=== PATIENT | male | born 1985 | race Caucasian/White ===

== ENCOUNTER 2022-07-21 11:45 | Outpatient (REF) | payer OTHER, SELFPAY ==
--- NOTE | ~2022-07-21 | XR_ITS ---
EXAMINATION: XR KNEE STANDING, BILATERAL XR KNEE, LEFT XR KNEE, RIGHT CLINICAL INFORMATION: Rheumatoid arthritis with rheumatoid factor. COMPARISON: None TECHNIQUE: AP upright of both knees as well as patella and lateral views of both knees. FINDINGS: RIGHT KNEE: No effusion. The bone and joints are unremarkable. No erosions LEFT KNEE: No effusion. The bone and joints are normal. No erosions. XR/XR knee standing BI IMPRESSION: Normal x-ray series of both knees .
--- NOTE | ~2022-07-21 | XR_ITS ---
EXAMINATION: XR KNEE STANDING, BILATERAL XR KNEE, LEFT XR KNEE, RIGHT CLINICAL INFORMATION: Rheumatoid arthritis with rheumatoid factor. COMPARISON: None TECHNIQUE: AP upright of both knees as well as patella and lateral views of both knees. FINDINGS: RIGHT KNEE: No effusion. The bone and joints are unremarkable. No erosions LEFT KNEE: No effusion. The bone and joints are normal. No erosions. XR/XR knee LT 2V IMPRESSION: Normal x-ray series of both knees .
--- NOTE | ~2022-07-21 | XR_ITS ---
EXAMINATION: XR HAND AND WRIST, BILATERAL XR FOOT, BILATERAL XR ANKLE, BILATERAL CLINICAL INFORMATION: Rheumatoid factor. COMPARISON: None TECHNIQUE: 3 views of each hand. 3 views of each foot. 3 views of each ankle. FINDINGS: RIGHT HAND AND WRIST: There is diffuse severe joint space narrowing of the radiocarpal compartment and midcarpal compartment with subchondral cyst in the distal radius subchondral region. Possible erosion of the distal radioulnar joint. Metacarpophalangeal Joints: There is diffuse moderate joint space narrowing of the 3rd and 5th MCP joints and possible slight narrowing of the 4th MCP joint. No definite erosions. Interphalangeal Joints: Unremarkable. No erosions. Soft Tissues: Unremarkable. LEFT HAND AND WRIST: Distal Radioulnar Joint: Severe erosive change with marked irregularity and attenuation of the distal ulna and a prominent concavity along the radial side of the distal radioulnar joint. Distal subluxation of the distal ulna. Diffuse severe joint space narrowing throughout the radiocarpal compartment. Possible partial osseous bridging across the joint. Midcarpal compartment: Diffuse severe joint space narrowing throughout. Possible small marginal erosion along the radial aspect of the triscaphe joint. Metacarpophalangeal Joints: There is diffuse joint space narrowing of the 3rd MCP joint and probably mild joint space narrowing of the 2nd MCP joint. No erosions. Interphalangeal Joints: Normal. RIGHT ANKLE: The bones, joints and soft tissues are normal. No erosions or joint space narrowing. RIGHT FOOT: Possible erosion versus subchondral cyst along the lateral aspect of the head of the 5th metatarsal. Possible marginal erosion along the lateral aspect of the head of the 2nd middle phalanx. LEFT ANKLE: The bones, joints and soft tissues are normal without erosion. LEFT FOOT: The bones, joints and soft tissues are normal without erosion. XR/XR ankle RT min 3V IMPRESSION: Findings consistent with inflammatory arthritis with bilateral involvement and involvement of the wrists and metacarpophalangeal joints. LEFT FOOT: Possible marginal erosion of the head of the 5th metatarsal and head of the 2nd middle phalanx. Ankles and right foot are unremarkable.
--- NOTE | ~2022-07-21 | XR_ITS ---
EXAMINATION: XR CHEST CLINICAL INFORMATION: Localized enlargement lymph nodes COMPARISON: None TECHNIQUE: 2 views of the chest were obtained. FINDINGS: No significant abnormality is noted involving the heart, lungs, mediastinum, bony thorax or soft tissues. Metallic left piercing noted XR/XR chest 2V IMPRESSION: No acute disease.
--- NOTE | ~2022-07-21 | XR_ITS ---
EXAMINATION: XR KNEE STANDING, BILATERAL XR KNEE, LEFT XR KNEE, RIGHT CLINICAL INFORMATION: Rheumatoid arthritis with rheumatoid factor. COMPARISON: None TECHNIQUE: AP upright of both knees as well as patella and lateral views of both knees. FINDINGS: RIGHT KNEE: No effusion. The bone and joints are unremarkable. No erosions LEFT KNEE: No effusion. The bone and joints are normal. No erosions. XR/XR knee RT 2V IMPRESSION: Normal x-ray series of both knees .
[2022-07-21 12:09] LABS: MANUAL DIFF FLAG NO
[2022-07-21 12:37] LABS: Basophils Percent Auto 0.6 % (0-2); Eosinophils Absolute Auto 0.1 X10*3/uL (0.0-0.4); Eosinophils Percent Auto 1.3 % (0-4); Hematocrit 43.9 % (42.0-52.0); Hemoglobin 15.2 g/dl (14.0-18.0); Imm Gran Abs Auto 0.01 X10*3/uL (0.00-0.03); Imm Gran Pct Auto 0.2 % (0.0-0.4); Lymphocytes Absolute Auto 2.4 X10*3/uL (1.2-4.9); Lymphocytes Percent Auto 44.4 % (20-40); Mean Corpuscular HGB Conc 34.6 g/dl (31.0-36.0); Mean Corpuscular Hemoglobin 30.8 pg (27.0-33.0); Mean Corpuscular Volume 88.9 fL (80.0-98.0); Monocytes Absolute Auto 0.5 X10*3/uL (0.1-1.2); Monocytes Percent Auto 8.9 % (2-11); Neutrophils Absolute Auto 2.4 x10*3/uL (2.0-8.3); Neutrophils Percent Auto 44.6 % (45-73); Platelet Count 260 X10*3/uL (160-400); Red Blood Count 4.94 X10*6/uL (4.60-5.80); Red Cell Distribution Width 12.7 % (11.0-16.0); White Blood Count 5.3 X10*3/uL (4.8-10.8)
[2022-07-21 13:06] LABS: Alanine Aminotransferase 58 U/L (0-40); Albumin Level 4.6 g/dL (3.5-5.0); Alkaline Phosphatase 69 U/L (39-117); Anion Gap 15 (12-20); Aspartate Amino Transferase 30 U/L (5-37); Bilirubin Total 0.6 mg/dL (0.0-1.0); Blood Urea Nitrogen 13 mg/dL (9-16); C Reactive Protein 0.08 mg/dL (< or = 0.50); Calcium 9.3 mg/dL (8.4-10.2); Carbon Dioxide 26 mmol/L (22-29); Chloride 103 mmol/L (96-108); Estimated Glomerular Filt Rate > 60; Glucose Random 79 mg/dL (60-115); Potassium 4.1 mmol/L (3.3-5.1); Sodium 140 mmol/L (135-145); Total Protein 7.5 g/dL (6.5-8.0)
[2022-07-21 13:26] LABS: Erythrocyte Sedimentation Rate 2 MM/HR (0-15)
[2022-07-21 13:28] LABS: HBS Num1 119.73 mIU/mL (0-7.99); HBc Num1 0.08 S/CO (0.00-0.79); HBsAGNum1 0.23 S/CO (0.00-0.99); HIV AB/AG Nonreactive (Nonreactive); HIV Num 1 0.06 S/CO (0.00-0.99); Hepatitis A Antibody IgM 0.19 Index (0-0.79); Hepatitis B Core Antibody Nonreactive (Nonreactive); Hepatitis B Surface Antigen Negative (Negative); Thyroid Stimulating Hormone 2.55 uIU/mL (0.32-4.0); ~HepC Num1 0.08 S/CO (0.00-0.79); ~Hepatitis A Antibody IgM Nonreactive (Nonreactive); ~Hepatitis B Surface Antibody REACTIVE (Nonreactive); ~Hepatitis C Antibody Nonreactive (Nonreactive)
[2022-07-21 13:48] LABS: Appearance Urine Clear; Color Urine Yellow; Glucose Urine UA Negative (Negative); Leukocyte Esterase Urine Negative (Negative); Nitrite Urine Negative (Negative); PH 5.5 (5.0-9.0); Urine Blood Negative (Negative); Urine Ketones Trace mg/dL (Negative); Urine Protein Negative (Neg-Trace)
[2022-07-21 13:54] LABS: Bacteria Urine None Seen (None Seen); Hyaline Casts Urine 0-2 /LPF (0-2); RBC Urine 0-2 /HPF (0-2); Squamous Epithelial Cell Urine 0-2 /HPF (0-2); WBC Urine 0-5 /HPF (0-5)
[2022-07-21 14:29] LABS: Creatinine Urine 225.59 mg/dL; Total Protein Urine Random < 7 mg/dL (<12)
[2022-07-24 16:36] LABS: Complement C3 122 mg/dL (82-185)
[2022-07-24 21:22] LABS: Angiotensin Converting Enzyme 45.8 U/L (9-67)
[2022-07-25 05:56] LABS: TS Negative Control Passed; TS Panel A 0; TS Panel B 0; TS Positive Control Passed; TSpotTB Negative (Negative)
[2022-07-25 12:06] LABS: Anti Nuclear Antibody Screen NEGATIVE (NEGATIVE)
[2022-07-25 14:22] LABS: Anti DNA DS Antibody <1 IU/mL; Antibody to SS-A Antigen <1.0 NEG AI (<1.0 NEG); Antibody to SS-B Antigen <1.0 NEG AI (<1.0 NEG); SM/Ribonucleoprotein Ab <1.0 NEG AI (<1.0 NEG); Smith Protein <1.0 NEG AI (<1.0 NEG)
[2022-07-25 14:26] LABS: IgA 365 mg/dL (47-310); IgG 1002 mg/dL (600-1640); IgM 99 mg/dL (50-300)
[2022-07-25 17:16] LABS: Cyclic Citrullinated Peptide 62 UNITS
[2022-07-25 23:21] LABS: Prot Elec - Albumin 4.7 g/dL (3.8-4.8); Prot Elec - Alpha1 0.2 g/dL (0.2-0.3); Prot Elec - Alpha2 0.7 g/dL (0.5-0.9); Prot Elec - Beta 1 0.4 g/dL (0.4-0.6); Prot Elec - Beta 2 0.4 g/dL (0.2-0.5); Prot Elec - Total Protein 7.4 g/dL (6.1-8.1)
== END 2022-07-21 11:46 | disposition home or self-care (01) ==
LOC: HO.LAB 11:45
PROVIDERS: PCP Internal Medicine; Visit Provider Student in an Organized Health Care Education/Training Program
DX: Z11.59 Encounter for screening for other viral diseases (principal); Z11.7 Encounter for testing for latent tuberculosis infection; Z11.4 Encounter for screening for human immunodeficiency virus [HIV]; M05.9 Rheumatoid arthritis with rheumatoid factor, unspecified; R59.0 Localized enlarged lymph nodes; Z79.631 Long term (current) use of antimetabolite agent
CPT/HCPCS: 36415; 71046; 73110; 73130; 73560; 73565; 73610; 73630; 80053; 81001; 82164; 82784; 84156; 84165; 84443; 85025; 85652; 86038; 86039; 86140; 86160; 86200; 86225; 86235; 86334; 86431; 86481; 86704; 86706; 86709; 86803; 87340; 87389; 99202

== ENCOUNTER 2022-09-15 11:52 | Outpatient (REF) | payer OTHER, SELFPAY ==
[2022-09-15 13:49] LABS: MANUAL DIFF FLAG NO
[2022-09-15 13:54] LABS: Basophils Percent Auto 0.5 % (0-2); Eosinophils Absolute Auto 0.1 X10*3/uL (0.0-0.4); Eosinophils Percent Auto 2.1 % (0-4); Hematocrit 45.1 % (42.0-52.0); Hemoglobin 14.7 g/dl (14.0-18.0); Imm Gran Abs Auto 0.04 X10*3/uL (0.00-0.03); Imm Gran Pct Auto 0.6 % (0.0-0.4); Lymphocytes Percent Auto 46.9 % (20-40); Mean Corpuscular HGB Conc 32.6 g/dl (31.0-36.0); Mean Corpuscular Hemoglobin 29.5 pg (27.0-33.0); Mean Corpuscular Volume 90.6 fL (80.0-98.0); Mean Platelet Volume 11.1 fL (9.4-12.4); Monocytes Absolute Auto 0.6 X10*3/uL (0.1-1.2); Monocytes Percent Auto 10.1 % (2-11); Neutrophils Absolute Auto 2.5 x10*3/uL (2.0-8.3); Neutrophils Percent Auto 39.8 % (45-73); Platelet Count 274 X10*3/uL (160-400); Red Blood Count 4.98 X10*6/uL (4.60-5.80); Red Cell Distribution Width 13.1 % (11.0-16.0); White Blood Count 6.3 X10*3/uL (4.8-10.8)
[2022-09-15 14:30] LABS: Alanine Aminotransferase 30 U/L (0-40); Albumin Level 4.2 g/dL (3.5-5.0); Alkaline Phosphatase 74 U/L (39-117); Anion Gap 9 (12-20); Aspartate Amino Transferase 19 U/L (5-37); Bilirubin Total 0.3 mg/dL (0.0-1.0); Blood Urea Nitrogen 17 mg/dL (9-16); C Reactive Protein < 0.10 mg/dL (< or = 0.50); Calcium 8.9 mg/dL (8.4-10.2); Carbon Dioxide 29 mmol/L (22-29); Chloride 107 mmol/L (96-108); Estimated Glomerular Filt Rate > 60; Glucose Random 90 mg/dL (60-115); Potassium 4.2 mmol/L (3.3-5.1); Sodium 141 mmol/L (135-145); Total Protein 6.5 g/dL (6.5-8.0)
[2022-09-15 14:36] LABS: Erythrocyte Sedimentation Rate 1 MM/HR (0-15)
== END 2022-09-15 11:53 | disposition home or self-care (01) ==
LOC: HO.10HDL 11:52
PROVIDERS: Visit Provider Student in an Organized Health Care Education/Training Program
DX: M05.9 Rheumatoid arthritis with rheumatoid factor, unspecified (principal); Z79.899 Other long term (current) drug therapy
CPT/HCPCS: 36415; 80053; 85025; 85652; 86140; 99212

== ENCOUNTER → 2022-11-02 13:43 | Outpatient (BNVA) | payer OTHER, SELFPAY | PROVIDERS: PCP Internal Medicine; Visit Provider Student in an Organized Health Care Education/Training Program | DX: M05.9 Rheumatoid arthritis with rheumatoid factor, unspecified (principal) | CPT/HCPCS: 99212 ==

== ENCOUNTER 2023-01-10 13:57 | Outpatient (REF) | payer OTHER, SELFPAY ==
[2023-01-10 14:07] LABS: MANUAL DIFF FLAG NO
[2023-01-10 16:02] LABS: Basophils Percent Auto 0.7 % (0-2); Eosinophils Absolute Auto 0.1 X10*3/uL (0.0-0.4); Eosinophils Percent Auto 1.8 % (0-4); Hematocrit 47.5 % (42.0-52.0); Hemoglobin 15.7 g/dl (14.0-18.0); Imm Gran Abs Auto 0.01 X10*3/uL (0.00-0.03); Imm Gran Pct Auto 0.2 % (0.0-0.4); Lymphocytes Absolute Auto 2.7 X10*3/uL (1.2-4.9); Lymphocytes Percent Auto 44.6 % (20-40); Mean Corpuscular HGB Conc 33.1 g/dl (31.0-36.0); Mean Corpuscular Hemoglobin 29.8 pg (27.0-33.0); Mean Corpuscular Volume 90.3 fL (80.0-98.0); Mean Platelet Volume 11.2 fL (9.4-12.4); Monocytes Absolute Auto 0.7 X10*3/uL (0.1-1.2); Monocytes Percent Auto 10.9 % (2-11); Neutrophils Absolute Auto 2.5 x10*3/uL (2.0-8.3); Neutrophils Percent Auto 41.8 % (45-73); Platelet Count 288 X10*3/uL (160-400); Red Blood Count 5.26 X10*6/uL (4.60-5.80)
[2023-01-10 16:40] LABS: Glucose Random 82 mg/dL (60-115)
[2023-01-10 16:41] LABS: Alanine Aminotransferase 25 U/L (0-40); Albumin Level 4.6 g/dL (3.5-5.0); Alkaline Phosphatase 65 U/L (39-117); Anion Gap 12 (12-20); Aspartate Amino Transferase 18 U/L (5-37); Bilirubin Total 0.6 mg/dL (0.0-1.0); Blood Urea Nitrogen 17 mg/dL (9-16); C Reactive Protein < 0.04 mg/dL (< or = 0.50); Calcium 9.4 mg/dL (8.4-10.2); Carbon Dioxide 31 mmol/L (22-29); Chloride 104 mmol/L (96-108); Estimated Glomerular Filt Rate > 60; Potassium 5.2 mmol/L (3.3-5.1); Sodium 142 mmol/L (135-145); Total Protein 6.9 g/dL (6.5-8.0)
[2023-01-10 16:55] LABS: Erythrocyte Sedimentation Rate 1 MM/HR (0-15)
== END 2023-01-10 13:58 | disposition home or self-care (01) ==
LOC: HO.LAB 13:57
PROVIDERS: PCP Internal Medicine; Visit Provider Student in an Organized Health Care Education/Training Program
DX: M05.9 Rheumatoid arthritis with rheumatoid factor, unspecified (principal)
CPT/HCPCS: 36415; 80053; 85025; 85652; 86140

== ENCOUNTER → 2023-01-11 10:06 | Outpatient (BNVA) | payer OTHER, SELFPAY | PROVIDERS: PCP Internal Medicine; Visit Provider Student in an Organized Health Care Education/Training Program | DX: M05.9 Rheumatoid arthritis with rheumatoid factor, unspecified (principal) | CPT/HCPCS: 99212 ==

== ENCOUNTER 2023-03-07 11:28 | Outpatient (REF) | payer OTHER, SELFPAY ==
[2023-03-07 13:06] LABS: MANUAL DIFF FLAG NO
[2023-03-07 13:19] LABS: Basophils Percent Auto 0.5 % (0-2); Eosinophils Absolute Auto 0.1 X10*3/uL (0.0-0.4); Eosinophils Percent Auto 1.7 % (0-4); Hematocrit 43.2 % (42.0-52.0); Hemoglobin 14.3 g/dl (14.0-18.0); Imm Gran Abs Auto 0.01 X10*3/uL (0.00-0.03); Imm Gran Pct Auto 0.2 % (0.0-0.4); Lymphocytes Absolute Auto 2.6 X10*3/uL (1.2-4.9); Lymphocytes Percent Auto 43.4 % (20-40); Mean Corpuscular HGB Conc 33.1 g/dl (31.0-36.0); Mean Corpuscular Hemoglobin 30.2 pg (27.0-33.0); Mean Corpuscular Volume 91.3 fL (80.0-98.0); Mean Platelet Volume 11.8 fL (9.4-12.4); Monocytes Absolute Auto 0.7 X10*3/uL (0.1-1.2); Monocytes Percent Auto 11.2 % (2-11); Neutrophils Absolute Auto 2.6 x10*3/uL (2.0-8.3); Platelet Count 247 X10*3/uL (160-400); Red Blood Count 4.73 X10*6/uL (4.60-5.80)
[2023-03-07 13:32] LABS: Alanine Aminotransferase 42 U/L (0-40); Albumin Level 4.3 g/dL (3.5-5.0); Alkaline Phosphatase 64 U/L (39-117); Anion Gap 10 (12-20); Aspartate Amino Transferase 25 U/L (5-37); Bilirubin Total 0.8 mg/dL (0.0-1.0); Blood Urea Nitrogen 17 mg/dL (9-16); C Reactive Protein < 0.04 mg/dL (< or = 0.50); Calcium 9.3 mg/dL (8.4-10.2); Carbon Dioxide 28 mmol/L (22-29); Chloride 107 mmol/L (96-108); Estimated Glomerular Filt Rate > 60; Glucose Random 89 mg/dL (60-115); Potassium 4.2 mmol/L (3.3-5.1); Sodium 141 mmol/L (135-145); Total Protein 6.6 g/dL (6.5-8.0)
[2023-03-07 14:03] LABS: Erythrocyte Sedimentation Rate 1 MM/HR (0-15)
== END 2023-03-07 11:29 | disposition home or self-care (01) ==
LOC: HO.10HDL 11:28
PROVIDERS: Visit Provider Student in an Organized Health Care Education/Training Program
DX: M05.9 Rheumatoid arthritis with rheumatoid factor, unspecified (principal)
CPT/HCPCS: 36415; 80053; 85025; 85652; 86140

== ENCOUNTER 2023-06-21 13:22 | Outpatient (REF) | payer SELFPAY ==
[2023-06-21 13:51] LABS: MANUAL DIFF FLAG NO
[2023-06-21 14:54] LABS: Basophils Percent Auto 0.6 % (0-2); Eosinophils Absolute Auto 0.1 X10*3/uL (0.0-0.4); Eosinophils Percent Auto 2.2 % (0-4); Hematocrit 44.3 % (42.0-52.0); Hemoglobin 14.8 g/dl (14.0-18.0); Imm Gran Abs Auto 0.02 X10*3/uL (0.00-0.03); Imm Gran Pct Auto 0.4 % (0.0-0.4); Lymphocytes Absolute Auto 1.9 X10*3/uL (1.2-4.9); Lymphocytes Percent Auto 38.9 % (20-40); Mean Corpuscular HGB Conc 33.4 g/dl (31.0-36.0); Mean Corpuscular Hemoglobin 29.9 pg (27.0-33.0); Mean Corpuscular Volume 89.5 fL (80.0-98.0); Mean Platelet Volume 11.2 fL (9.4-12.4); Monocytes Absolute Auto 0.5 X10*3/uL (0.1-1.2); Neutrophils Absolute Auto 2.3 x10*3/uL (2.0-8.3); Neutrophils Percent Auto 47.9 % (45-73); Platelet Count 260 X10*3/uL (160-400); Red Blood Count 4.95 X10*6/uL (4.60-5.80); White Blood Count 4.9 X10*3/uL (4.8-10.8)
[2023-06-21 15:23] LABS: Alanine Aminotransferase 28 U/L (0-40); Albumin Level 4.2 g/dL (3.5-5.0); Alkaline Phosphatase 82 U/L (39-117); Anion Gap 10 (12-20); Aspartate Amino Transferase 20 U/L (5-37); Bilirubin Total 0.4 mg/dL (0.0-1.0); Blood Urea Nitrogen 19 mg/dL (9-16); C Reactive Protein < 0.10 mg/dL (< or = 0.50); Carbon Dioxide 28 mmol/L (22-29); Chloride 106 mmol/L (96-108); Estimated Glomerular Filt Rate > 60; Glucose Random 149 mg/dL (60-115); Potassium 4.3 mmol/L (3.3-5.1); Sodium 140 mmol/L (135-145); Total Protein 6.7 g/dL (6.5-8.0)
[2023-06-21 15:31] LABS: Erythrocyte Sedimentation Rate 2 MM/HR (0-15)
== END 2023-06-21 13:23 | disposition home or self-care (01) ==
LOC: HO.LAB 13:22
PROVIDERS: PCP Internal Medicine; Visit Provider Student in an Organized Health Care Education/Training Program
DX: M05.9 Rheumatoid arthritis with rheumatoid factor, unspecified (principal); Z79.899 Other long term (current) drug therapy
CPT/HCPCS: 36415; 80053; 85025; 85652; 86140; 99212

== ENCOUNTER 2023-06-21 14:55 | Outpatient (AMB) | payer SELFPAY ==
[2023-06-21 14:58] VITALS: BP 116/70; PULSE 86; TEMP 36.4; O2SAT 96; BMI 26.8
--- NOTE | 2023-06-21 14:58 | MHC.OFFVIS ---
Intake Vital Signs 06/21/23 14:58 Height 5 ft 7 in Weight 170 lb 13.732 oz BMI 26.8 BP 116/70 Blood Pressure Location Rt brachial Position Sitting Pulse 86 Pulse Source Pulse Oximeter Temp 97.5 F Pulse Oximetry (%) 96 Intake Visit Reasons: Rheumatoid Arthritis/Insurance Inactive Intake Note: Pt seen today for RA follow up. 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 Patient was unable get Enbrel for the last month. Due to a change in insurance. Continues on sulfasalazine 2 tabs twice daily. States that his pain and stiffness is 50% to worse. He is having stiffness of his wrists, fingers in the morning some pain in his wrists. Rarely takes ibuprofen. States that his job made some ergonomic accommodations due to his RA Initial history: This is a 36-year-old male with a past medical history of seropositive RA (+++ CCP,+++ RF) which was diagnosed 3-4 years ago, used to see Lennox Mullins, was treated with methotrexate 6 tabs weekly and prednisone as needed who presents for evaluation of his RA. He has not been able to see a foxing cutting machine operator in almost 1 year. He ran out of his methotrexate many months ago. He got prescriptions of prednisone from his PCP which last him just a few weeks. He is currently having pain stiffness and swelling of his hands, morning stiffness lasts at least 1 hour and significant difficulty moving his wrist. He also has pain in his toes particularly the right 5th MTP. He takes ibuprofen which should provide some relief. He stated that when he was on the methotrexate he was feeling much better overall. He was recently evaluated by a surgeon for possible left axillary lymph adenopathy biopsy. He will have repeat imaging [facility] Medical History Axillary lymphadenopathy Surgical History Hx of appendectomy Family History Paternal Grandmother Rheumatoid arthritis Father Myocardial infarction Mother No problems noted. Social History Household Members: Spouse and Children Alcohol intake: current Alcohol intake frequency: a few times a month Alcohol type: beer Patient Tobacco Use Status: Current someday Tobacco user Current occupational status: employed Current occupation: [email or web address] Review of Systems [facility] Reports deformity, Reports arthralgias and Reports stiffness Physical Exam Vital Signs: Last Vital Signs Temp 97.5 F 06/21/23 14:58 Pulse 86 06/21/23 14:58 BP 116/70 06/21/23 14:58 Pulse Ox 96 06/21/23 14:58 BMI result Body Mass Index 26.8 Const General: cooperative, healthy appearing, comfortable and no acute distress Nutritional Appearance: average body habitus and well nourished Orientation/consciousness: patient oriented x3 Limitations: no limitations HEENT Head: Yes normocephalic and Yes atraumatic Mouth: Normal oral and palatal mucosa present Resp Effort & Inspection: normal respiratory effort Neuro General: patient oriented x3 Extrem Other: Shoulders: No swelling, warmth or tenderness, normal range of motion Mild Bilateral wrist tenderness to palpation without swelling significantly limited range of motion of both wrists cannot extend his wrists Bilateral MCP thickening Left 3rd MCP swelling 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 COMPARISON: None? TECHNIQUE: 3 views of each hand. 3 views of each foot. 3 views of each ankle.? FINDINGS: RIGHT HAND AND WRIST: There is diffuse severe joint space narrowing of the radiocarpal compartment and midcarpal compartment with subchondral cyst in the distal radius subchondral region. Possible erosion of the distal radioulnar joint. Metacarpophalangeal Joints: There is diffuse moderate joint space narrowing of the 3rd and 5th MCP joints and possible slight narrowing of the 4th MCP joint. No definite erosions. Interphalangeal Joints: Unremarkable. No erosions. Soft Tissues: Unremarkable. LEFT HAND AND WRIST: Distal Radioulnar Joint: Severe erosive change with marked irregularity and attenuation of the distal ulna and a prominent concavity along the radial side of the distal radioulnar joint. Distal subluxation of the distal ulna. Diffuse severe joint space narrowing throughout the radiocarpal compartment. Possible partial osseous bridging across the joint. Midcarpal compartment: Diffuse severe joint space narrowing throughout. Possible small marginal erosion along the radial aspect of the triscaphe joint. Metacarpophalangeal Joints: There is diffuse joint space narrowing of the 3rd MCP joint and probably mild joint space narrowing of the 2nd MCP joint. No erosions. Interphalangeal Joints: Normal. RIGHT ANKLE: The bones, joints and soft tissues are normal. No erosions or joint space narrowing. RIGHT FOOT: Possible erosion versus subchondral cyst along the lateral aspect of the head of the 5th metatarsal. Possible marginal erosion along the lateral aspect of the head of the 2nd middle phalanx. LEFT ANKLE: The bones, joints and soft tissues are normal without erosion. LEFT FOOT: The bones, joints and soft tissues are normal without erosion. XR/XR hand wrist RT IMPRESSION: Findings consistent with inflammatory arthritis with bilateral involvement and involvement of the wrists and metacarpophalangeal joints. ? LEFT FOOT: Possible marginal erosion of the head of the 5th metatarsal and head of the 2nd middle phalanx. ? Ankles and right foot are unremarkable. Assessment & Plan Assessment & Plan (1) Seropositive rheumatoid arthritis: Comment: +++ RF+++ CCP diagnosed in 2014 Started on methotrexate 6 tabs weekly Methotrexate discontinued 07/2022 due to transaminitis SSZ started 07/2022 mildly effective Enbrel added 10/30 effective ran out due to change in insurance 05/30 Code(s): M05.9 - Rheumatoid arthritis with rheumatoid factor, unspecified Plan: This is a 37-year-old male with a past medical history of seropositive deforming RA (+++ CCP,+++ RF) presents for follow-up. There was a change in patient's insurance about a month ago and he has not been able to get the Enbrel for 1 month. His RA is a little worse overall. He is on sulfasalazine 1 g twice daily Enbrel patient assistance form was completed in clinic today. Will be sent to the ramp lead. Patient will have new insurance soon and hopefully his Enbrel would be covered. Increase sulfasalazine to 1.5 g twice daily. 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 Panel 3 Months M05.9 - Rheumatoid arthritis with rheumatoid factor, unspecified Medications: Changed From sulfasalazine 1 g (2 x 500 mg) PO BID 360 tabs 0RF To sulfasalazine 1.5 grams (3 x 500 mg) PO BID 540 tabs 1RF NS Coding Level of Care Code Est Pt Level 4 (93421) Diagnoses Seropositive rheumatoid arthritis M05.9 On sulfasalazine therapy Z79.899
== END 2023-06-21 15:30 | disposition home or self-care (01) ==
PROVIDERS: PCP Internal Medicine; Visit Provider Student in an Organized Health Care Education/Training Program
DX: M05.79 Rheumatoid arthritis with rheumatoid factor of multiple sites without organ or systems involvement (principal); Z79.899 Other long term (current) drug therapy
CPT/HCPCS: 99214

== ENCOUNTER 2024-02-18 16:47 | Outpatient (REF) | payer BC, SELFPAY ==
[2024-02-18 17:11] LABS: MANUAL DIFF FLAG NO
[2024-02-18 17:13] LABS: Basophils Percent Auto 0.7 % (0-2); Eosinophils Absolute Auto 0.2 X10*3/uL (0.0-0.4); Eosinophils Percent Auto 3.2 % (0-4); Hematocrit 39.7 % (42.0-52.0); Hemoglobin 13.6 g/dl (14.0-18.0); Imm Gran Abs Auto 0.03 X10*3/uL (0.00-0.03); Imm Gran Pct Auto 0.5 % (0.0-0.4); Lymphocytes Absolute Auto 2.2 X10*3/uL (1.2-4.9); Lymphocytes Percent Auto 35.9 % (20-40); Mean Corpuscular HGB Conc 34.3 g/dl (31.0-36.0); Mean Corpuscular Volume 87.6 fL (80.0-98.0); Mean Platelet Volume 10.5 fL (9.4-12.4); Monocytes Absolute Auto 0.6 X10*3/uL (0.1-1.2); Monocytes Percent Auto 9.5 % (2-11); Neutrophils Percent Auto 50.2 % (45-73); Platelet Count 314 X10*3/uL (160-400); Red Blood Count 4.53 X10*6/uL (4.60-5.80)
[2024-02-18 17:57] LABS: Alanine Aminotransferase 23 U/L (0-40); Albumin Level 4.3 g/dL (3.5-5.0); Alkaline Phosphatase 74 U/L (39-117); Anion Gap 14 (12-20); Aspartate Amino Transferase 19 U/L (5-37); Bilirubin Total 0.3 mg/dL (0.0-1.0); Blood Urea Nitrogen 21 mg/dL (9-16); C Reactive Protein 0.24 mg/dL (< or = 0.50); Calcium 9.1 mg/dL (8.4-10.2); Carbon Dioxide 25 mmol/L (22-29); Chloride 107 mmol/L (96-108); Estimated Glomerular Filt Rate > 60; Glucose Random 83 mg/dL (60-115); Potassium 4.3 mmol/L (3.3-5.1); Sodium 142 mmol/L (135-145); Total Protein 7.2 g/dL (6.5-8.0)
[2024-02-18 18:06] LABS: Erythrocyte Sedimentation Rate 8 MM/HR (0-15)
== END 2024-02-18 16:48 | disposition home or self-care (01) ==
LOC: HO.LAB 16:47
PROVIDERS: PCP Internal Medicine; Visit Provider Student in an Organized Health Care Education/Training Program
DX: M05.9 Rheumatoid arthritis with rheumatoid factor, unspecified (principal)
CPT/HCPCS: 36415; 80053; 85025; 85652; 86140

== ENCOUNTER 2024-02-19 16:02 | Outpatient (AMB) | payer BC, SELFPAY ==
--- NOTE | 2024-02-19 16:01 | A.OFFVIS_ITS ---
Vital Signs 02/19/24 16:05 Height 5 ft 7 in Weight 177 lb 7.554 oz BMI 27.8 BP 132/68 Blood Pressure Location Rt brachial Position Sitting Pulse 80 Pulse Source Pulse Oximeter Pulse Oximetry (%) 97 Oxygen Delivery Method Room Air Intake Visit Reasons: RA Intake Note: Patient last seen 06/21/23 presents today for follow up and test results. C/o bl hand pain, knees and feet. Pt has been out of medications due to insurance issues. Managing with Motrin 200mg Microwave Supervisor Required: Yes Microwave Supervisor Name: Rama Michelle Information Interpreted: clinical only Accompanied by: Self / Same As Patient Allergies No Known Allergies Allergy (Verified 02/19/24 16:06) Medication List - Last Reconciled 02/19/24 by Miguel Ángel Mesa MD ibuprofen 600 mg PO Q8H PRN sulfasalazine 1.5 grams (3 x 500 mg) PO BID NS HPI Comments Details: 38-year-old male with seropositive deforming RA returns for follow-up. Patient states that he was in between jobs and he ran out of his sulfasalazine and Enbrel to 6 months ago. He has been feeling much worse overall. Noted a new drop. 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 He is having significant joint pain, swelling especially in his hands, wrists, intermittent pain in his knees. He has been taking ibuprofen 200 mg 2 to 3 times a day. Initial history: This is a 36-year-old male with a past medical history of seropositive RA (+++ CCP,+++ RF) which was diagnosed 3-4 years ago, used to see Lennox Mullins, was treated with methotrexate 6 tabs weekly and prednisone as needed who presents for evaluation of his RA. He has not been able to see a oil scout in almost 1 year. He ran out of his methotrexate many months ago. He got prescriptions of prednisone from his PCP which last him just a few weeks. He is currently having pain stiffness and swelling of his hands, morning stiffness lasts at least 1 hour and significant difficulty moving his wrist. He also has pain in his toes particularly the right 5th MTP. He takes ibuprofen which should provide some relief. He stated that when he was on the methotrexate he was feeling much better overall. He was recently evaluated by a surgeon for possible left axillary lymph adenopathy biopsy. He will have repeat imaging [facility] Medical History Axillary lymphadenopathy Surgical History Hx of appendectomy Family History Paternal Grandmother Rheumatoid arthritis Father Myocardial infarction Mother No problems noted. 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 [facility] [place] Reports deformity, Reports arthralgias, Reports joint swelling and Reports stiffness Physical Exam Vital Signs: Last Vital Signs Pulse 80 02/19/24 16:05 BP 132/68 02/19/24 16:05 Pulse Ox 97 02/19/24 16:05 Oxygen Delivery Method Room Air 02/19/24 16:05 BMI result Body Mass Index 27.8 Const General: cooperative, healthy appearing, comfortable and no acute distress Nutritional Appearance: average body habitus and well nourished Orientation/consciousness: patient oriented x3 Limitations: no limitations HEENT Head: Yes normocephalic and Yes atraumatic Mouth: Normal oral and palatal mucosa present Resp Effort & Inspection: normal respiratory effort Neuro General: patient oriented x3 Extrem Other: Shoulders: No swelling, warmth or tenderness, normal range of motion Swelling and tenderness at the right ulnar styloid and pain with any range of motion Significantly limited range of motion of his right wrist Tenderness of the right 5th MCP L Left wrist swelling and tenderness and large ganglion cyst on the dorsum of left hand Significantly limited range of motion of left hand Significant swelling and synovial thickening of left 3rd MCP 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 COMPARISON: None? TECHNIQUE: 3 views of each hand. 3 views of each foot. 3 views of each ankle.? FINDINGS: RIGHT HAND AND WRIST: There is diffuse severe joint space narrowing of the radiocarpal compartment and midcarpal compartment with subchondral cyst in the distal radius subchondral region. Possible erosion of the distal radioulnar joint. Metacarpophalangeal Joints: There is diffuse moderate joint space narrowing of the 3rd and 5th MCP joints and possible slight narrowing of the 4th MCP joint. No definite erosions. Interphalangeal Joints: Unremarkable. No erosions. Soft Tissues: Unremarkable. LEFT HAND AND WRIST: Distal Radioulnar Joint: Severe erosive change with marked irregularity and attenuation of the distal ulna and a prominent concavity along the radial side of the distal radioulnar joint. Distal subluxation of the distal ulna. Diffuse severe joint space narrowing throughout the radiocarpal compartment. Possible partial osseous bridging across the joint. Midcarpal compartment: Diffuse severe joint space narrowing throughout. Possible small marginal erosion along the radial aspect of the triscaphe joint. Metacarpophalangeal Joints: There is diffuse joint space narrowing of the 3rd MCP joint and probably mild joint space narrowing of the 2nd MCP joint. No erosions. Interphalangeal Joints: Normal. RIGHT ANKLE: The bones, joints and soft tissues are normal. No erosions or joint space narrowing. RIGHT FOOT: Possible erosion versus subchondral cyst along the lateral aspect of the head of the 5th metatarsal. Possible marginal erosion along the lateral aspect of the head of the 2nd middle phalanx. LEFT ANKLE: The bones, joints and soft tissues are normal without erosion. LEFT FOOT: The bones, joints and soft tissues are normal without erosion. XR/XR hand wrist RT IMPRESSION: Findings consistent with inflammatory arthritis with bilateral involvement and involvement of the wrists and metacarpophalangeal joints. ? LEFT FOOT: Possible marginal erosion of the head of the 5th metatarsal and head of the 2nd middle phalanx. ? Ankles and right foot are unremarkable. Assessment & Plan Assessment & Plan (1) Seropositive rheumatoid arthritis: Comment: +++ RF+++ CCP deforming diagnosed in 2014 Started on methotrexate 6 tabs weekly Methotrexate discontinued 07/2022 due to transaminitis SSZ started 07/2022 mildly effective Enbrel added 10/30 effective ran out due to change in insurance 05/30 Code(s): M05.9 - Rheumatoid arthritis with rheumatoid factor, unspecified Category: Medical Plan: This is a 38-year-old male with a past medical history of seropositive deforming RA (+++ CCP,+++ RF) who presents for follow-up. Patient changed jobs and lost his insurance and medications 3-4 months ago and has been having significant joint pain and swelling. On exam he has significant synovitis. He just started a new job and now has insurance. Will need to restart DMARDs. Restart sulfasalazine 1.5 g Twice daily Will start prior authorization for Enbrel 50 mg subcutaneously once weekly Labs before next visit in 10 weeks (2) On sulfasalazine therapy: Code(s): Z79.899 - Other correction (current) drug therapy Category: Medical Plan: Monitor safety labs Plan I spent 29 minutes reviewing patient's chart, evaluating patient, ordering diagnostic workup, counseling patient and documenting in the chart Orders: Orders Comprehensive Met. Panel 10 Weeks M05.9 - Rheumatoid arthritis with rheumatoid factor, unspecified, Z79.899 - Other termite technician (current) drug therapy Complete Blood Count Auto Diff 10 Weeks M05.9 - Rheumatoid arthritis with rheumatoid factor, unspecified, Z79.899 - Other correction (current) drug therapy C Reactive Protein 10 Weeks M05.9 - Rheumatoid arthritis with rheumatoid factor, unspecified, Z79.899 - Other correction (current) drug therapy Erythrocyte Sedimentation Rate 10 Weeks M05.9 - Rheumatoid arthritis with rheumatoid factor, unspecified, Z79.899 - Other termite technician (current) drug therapy Hepatitis A,B,C Profile 10 Weeks M05.9 - Rheumatoid arthritis with rheumatoid factor, unspecified, Z79.899 - Other correction (current) drug therapy T Spot TB 10 Weeks M05.9 - Rheumatoid arthritis with rheumatoid factor, unspecified, Z79.899 - Other termite technician (current) drug therapy Medications: Changed From sulfasalazine 1.5 grams (3 x 500 mg) PO BID 540 tabs 1RF NS To sulfasalazine Take with meal/snack 1.5 grams (3 x 500 mg) PO BID 540 tabs 1RF NS Coding Level of Care Code Est Pt Level 4 (07774) Diagnoses Seropositive rheumatoid arthritis M05.9 On sulfasalazine therapy Z79.899
[2024-02-19 16:05] VITALS: BP 132/68; PULSE 80; O2SAT 97; BMI 27.8
== END 2024-02-19 16:33 | disposition home or self-care (01) ==
LOC: HO.RHE 16:02
PROVIDERS: PCP Internal Medicine; Visit Provider Student in an Organized Health Care Education/Training Program
DX: M05.79 Rheumatoid arthritis with rheumatoid factor of multiple sites without organ or systems involvement (principal); Z79.899 Other long term (current) drug therapy
CPT/HCPCS: 99214

== ENCOUNTER → 2024-02-19 16:02 | Outpatient (BNVA) | payer BC, SELFPAY | PROVIDERS: PCP Internal Medicine; Visit Provider Student in an Organized Health Care Education/Training Program ==

== ENCOUNTER 2024-04-30 15:46 | Outpatient (AMB) | payer BC, SELFPAY ==
[2024-04-30 16:02] VITALS: BP 100/58; PULSE 62; O2SAT 96; BMI 27.1
--- NOTE | 2024-04-30 16:02 | MHC.OFFVIS ---
Vital Signs 04/30/24 16:02 Height 5 ft 7 in Weight 173 lb 1.006 oz BMI 27.1 BP 100/58 L Blood Pressure Location Lt brachial Position Sitting Pulse 62 Pulse Source Pulse Oximeter Pulse Oximetry (%) 96 Oxygen Delivery Method Room Air Intake Visit Reasons: RA Intake Note: Patient is here to follow up on rheumatoid arthritis. Patient would like refill on his Sulfaslsazine 500mg. Patient states he has been feeling a little dizzy for about a month now, and blood pressure was lower than normal today. Managing Partner [employer] Required: Yes Managing Partner [employer] Name: Ashleigh Wolfe Accompanied by: Self / Same As Patient Allergies No Known Allergies Allergy (Verified 04/30/24 16:04) Medication List - Last Reconciled 04/30/24 by Miguel Ángel Mesa MD Enbrel SureClick (etanercept) 50 mg subcut QWEEK NS ibuprofen 600 mg PO Q8H PRN sulfasalazine 1.5 grams (3 x 500 mg) PO BID NS HPI Comments Details: 38-year-old male with seropositive deforming RA returns for follow-up. States that he has been compliant with sulfasalazine 3 g a day and Enbrel weekly. Has not had any issues getting his Enbrel approved or shipped. Only gets minimal pains in his knees, wrists, no significant swelling. He states that he has been having intermittent dizziness and lightheadedness. Initial history: This is a 36-year-old male with a past medical history of seropositive RA (+++ CCP,+++ RF) which was diagnosed 3-4 years ago, used to see Lennox Mullins, was treated with methotrexate 6 tabs weekly and prednisone as needed who presents for evaluation of his RA. He has not been able to see a technical program manager in almost 1 year. He ran out of his methotrexate many months ago. He got prescriptions of prednisone from his PCP which last him just a few weeks. He is currently having pain stiffness and swelling of his hands, morning stiffness lasts at least 1 hour and significant difficulty moving his wrist. He also has pain in his toes particularly the right 5th MTP. He takes ibuprofen which should provide some relief. He stated that when he was on the methotrexate he was feeling much better overall. He was recently evaluated by a surgeon for possible left axillary lymph adenopathy biopsy. He will have repeat imaging [facility] Medical History Axillary lymphadenopathy Surgical History Hx of appendectomy Family History Paternal Grandmother Rheumatoid arthritis Father Myocardial infarction Mother No problems noted. 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 Review of Systems ENT Reports dizziness Musc Reports deformity, Reports arthralgias, Denies joint swelling and Reports stiffness Neuro Reports dizziness Physical Exam Vital Signs: Last Vital Signs Pulse 62 04/30/24 16:02 BP 100/58 L 04/30/24 16:02 Pulse Ox 96 04/30/24 16:02 Oxygen Delivery Method Room Air 04/30/24 16:02 BMI result Body Mass Index 27.1 Const General: cooperative, healthy appearing, comfortable and no acute distress Nutritional Appearance: average body habitus and well nourished Orientation/consciousness: patient oriented x3 Limitations: no limitations HEENT Head: Yes normocephalic and Yes atraumatic Mouth: Normal oral and palatal mucosa present Resp Effort & Inspection: normal respiratory effort and able to speak in complete sentences Auscultation: clear to auscultation bilaterally Cardio Rate: regular rate Rhythm: regular rhythm Neuro General: patient oriented x3 Extrem Other: Shoulders: No swelling, warmth or tenderness, normal range of motion Prominence of right ulnar styloid but no swelling or tenderness Significantly limited range of motion of his right wrist (chronic) Right hand ulnar deviation at the MCPs Left wrist with no swelling or tenderness Significantly limited range of motion of left hand Significant swelling and synovial thickening of left 3rd MCP 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 COMPARISON: None? TECHNIQUE: 3 views of each hand. 3 views of each foot. 3 views of each ankle.? FINDINGS: RIGHT HAND AND WRIST: There is diffuse severe joint space narrowing of the radiocarpal compartment and midcarpal compartment with subchondral cyst in the distal radius subchondral region. Possible erosion of the distal radioulnar joint. Metacarpophalangeal Joints: There is diffuse moderate joint space narrowing of the 3rd and 5th MCP joints and possible slight narrowing of the 4th MCP joint. No definite erosions. Interphalangeal Joints: Unremarkable. No erosions. Soft Tissues: Unremarkable. LEFT HAND AND WRIST: Distal Radioulnar Joint: Severe erosive change with marked irregularity and attenuation of the distal ulna and a prominent concavity along the radial side of the distal radioulnar joint. Distal subluxation of the distal ulna. Diffuse severe joint space narrowing throughout the radiocarpal compartment. Possible partial osseous bridging across the joint. Midcarpal compartment: Diffuse severe joint space narrowing throughout. Possible small marginal erosion along the radial aspect of the triscaphe joint. Metacarpophalangeal Joints: There is diffuse joint space narrowing of the 3rd MCP joint and probably mild joint space narrowing of the 2nd MCP joint. No erosions. Interphalangeal Joints: Normal. RIGHT ANKLE: The bones, joints and soft tissues are normal. No erosions or joint space narrowing. RIGHT FOOT: Possible erosion versus subchondral cyst along the lateral aspect of the head of the 5th metatarsal. Possible marginal erosion along the lateral aspect of the head of the 2nd middle phalanx. LEFT ANKLE: The bones, joints and soft tissues are normal without erosion. LEFT FOOT: The bones, joints and soft tissues are normal without erosion. XR/XR hand wrist RT IMPRESSION: Findings consistent with inflammatory arthritis with bilateral involvement and involvement of the wrists and metacarpophalangeal joints. ? LEFT FOOT: Possible marginal erosion of the head of the 5th metatarsal and head of the 2nd middle phalanx. ? Ankles and right foot are unremarkable. Assessment & Plan Assessment & Plan (1) Seropositive rheumatoid arthritis: Comment: +++ RF+++ CCP deforming diagnosed in 2014 Started on methotrexate 6 tabs weekly Methotrexate discontinued 07/2022 due to transaminitis SSZ started 07/2022 partially effective Enbrel added 10/30 effective ran out due to change in insurance 05/30 Enbrel restarted 02/2024 effective Code(s): M05.9 - Rheumatoid arthritis with rheumatoid factor, unspecified Category: Medical Plan: This is a 38-year-old male with seropositive deforming RA (+++ CCP,+++ RF) who presents for follow-up. On sulfasalazine 1.5 g Twice daily and Enbrel 50 mg weekly. Doing quite well overall with no active synovitis. His symptoms are likely related to degenerative arthritis related to chronically damaged and deformed joints Continue current meds Advised patient to get blood work done as soon as possible Labs before next visit in 3 months (2) On sulfasalazine therapy: Code(s): Z79.899 - Other intermediate (current) drug therapy Category: Medical Plan: Monitor safety labs (3) On etanercept therapy: Code(s): Z79.620 - detention (current) use of immunosuppressive biologic Category: Medical Plan: Side effects of Enbrel were discussed with the patient in detail including increased risk of infection, demyelinating disease, reactivation of latent TB, possible increased risk of solid and skin tumors. Patient fully aware. Advised patient to seek medical care ASAPif patient has an infection and advised patient to stop the medication until the infection is resolved. Plan I spent 29 minutes reviewing patient's chart, evaluating patient, ordering diagnostic workup, counseling patient and documenting in the chart Orders: Orders Complete Blood Count Auto Diff 3 Months M05.9 - Rheumatoid arthritis with rheumatoid factor, unspecified, Z79.899 - Other intermediate (current) drug therapy Comprehensive Met. Panel 3 Months M05.9 - Rheumatoid arthritis with rheumatoid factor, unspecified, Z79.899 - Other intermediate (current) drug therapy C Reactive Protein 3 Months M05.9 - Rheumatoid arthritis with rheumatoid factor, unspecified, Z79.899 - Other long term care administrator (current) drug therapy Erythrocyte Sedimentation Rate 3 Months M05.9 - Rheumatoid arthritis with rheumatoid factor, unspecified, Z79.899 - Other long term care administrator (current) drug therapy Medications: Refilled sulfasalazine Take with meal/snack 1.5 grams (3 x 500 mg) PO BID 180 tabs 0RF NS Coding Level of Care Code Est Pt Level 4 (78795) Diagnoses Seropositive rheumatoid arthritis M05.9 On sulfasalazine therapy Z79.899 On etanercept therapy Z79.620
== END 2024-04-30 16:22 | disposition home or self-care (01) ==
PROVIDERS: PCP Internal Medicine; Visit Provider Student in an Organized Health Care Education/Training Program
DX: M05.79 Rheumatoid arthritis with rheumatoid factor of multiple sites without organ or systems involvement (principal); Z79.899 Other long term (current) drug therapy; Z79.620 Long term (current) use of immunosuppressive biologic
CPT/HCPCS: 99214

== ENCOUNTER → 2024-04-30 15:46 | Outpatient (BNVA) | payer BC, SELFPAY | PROVIDERS: PCP Internal Medicine; Visit Provider Student in an Organized Health Care Education/Training Program ==

== ENCOUNTER 2024-11-05 09:23 | Outpatient (REF) | payer OTHER, SELFPAY ==
[2024-11-05 10:24] LABS: MANUAL DIFF FLAG NO
[2024-11-05 10:47] LABS: Basophils Percent Auto 0.6 % (0-2); Eosinophils Absolute Auto 0.1 X10*3/uL (0.0-0.4); Eosinophils Percent Auto 2.8 % (0-4); Hematocrit 42.6 % (42.0-52.0); Hemoglobin 14.1 g/dl (14.0-18.0); Imm Gran Abs Auto 0.02 X10*3/uL (0.00-0.03); Imm Gran Pct Auto 0.4 % (0.0-0.4); Lymphocytes Absolute Auto 1.8 X10*3/uL (1.2-4.9); Lymphocytes Percent Auto 38.8 % (20-40); Mean Corpuscular HGB Conc 33.1 g/dl (31.0-36.0); Mean Corpuscular Hemoglobin 30.7 pg (27.0-33.0); Mean Corpuscular Volume 92.6 fL (80.0-98.0); Mean Platelet Volume 10.9 fL (9.4-12.4); Monocytes Absolute Auto 0.6 X10*3/uL (0.1-1.2); Neutrophils Absolute Auto 2.1 x10*3/uL (2.0-8.3); Neutrophils Percent Auto 45.4 % (45-73); Platelet Count 263 X10*3/uL (160-400); Red Cell Distribution Width 12.2 % (11.0-16.0); White Blood Count 4.7 X10*3/uL (4.8-10.8)
--- OUTSIDE RECORDS SUMMARY | 2024-11-05 10:52 | XMS_ITS | Clinical Summary ---
Author Organization [facility] Address [address] [place] [address] Care Team Providers Care Belly Roller Name Role Phone Serafin Louis MD Primary Care Provider [phone] Allergies No known active allergies Medications Medication Sig Dispensed Refills Start Date End Date Status predniSONE (DELTASONE) 20 mg tablet Take 3 tabs for 2 days, take 2 tabs for 2 days, take 1 tab for 2 days 03/19/2023 Active fluticasone propionate (FLONASE) 50 mcg/actuation nasal spray 2 Sprays by Nasal route daily. 03/19/2023 Active hydrOXYzine HCL (ATARAX) 25 mg tablet Take 1 tablet (25 mg total) by mouth at bedtime as needed. 06/02/2022 Active Active Problems Problem Noted Date Diagnosed Date Renal cyst 02/15/2024 Overview (2024): Right renal cyst, 6.5cm. Will need follow up CT scan in 6 months. Umbilical hernia 02/15/2024 Overview (2024): CT [facility] at [facility] on 01/23/2024 Rheumatoid arthritis 07/22/2014 Immunizations Name Administration Dates Next Due Influenza Quadravalent, MDCK , 0.5ml, preservative free (Flucelvax) 6mo and older 08/08/2021,06/18/2020,10/27/2019 Influenza trivalent, 0.5mL, preservative free (Fluarix; FluLaval; Fluzone) ages 6mo and older (Afluria) 3 years and older 09/01/2015 [place] SARS-CoV-2 COVID-19, mRNA, LNP-S, preservative free 04/29/2021,03/25/2021 Pneumococcal polysaccharide 23 valent (Pneumovax 23) 2yo and older 10/27/2014 Tdap Tetanus diptheria acell ular pertussis (Boostrix; Adacel) 7yo and older 06/17/2014 Surgical History Surgery Date Site/Laterality Comments APPENDECTOMY 2014 PROCEDURE: HISTORICAL APPENDECTOMY Medical History Medical History Date Comments Rheumatoid arthritis (CMS/HCC) D X:Rheumatoid arthritis (HCC) Family History Medical History Relation Name Comments Heart attack Father Rheum arthritis Other paternal Gra nd Mother Relation Name Status Comments Father Other Social History Tobacco Use Types Packs/Day Years Used Date Smoking Tobacco: Some Days Cigarettes Smokeless Tobacco: Never Alcohol Use Standard Drinks/Week Comments Yes 0 (1 standard drink = 0.6 oz pur e alcohol) Sex and Gender Information Value Date Recorded Sex Assigned at Not on file Gender Identity Not on file Sexual Orientation Not on file Obstetrics History Last Filed Vital Signs Vital Sign Reading Time Taken Comments Blood Pressure 112/80 03/19/2023 8:57 AM EDT Pulse 72 03/19/2023 8:57 AM EDT Temperature - - Respiratory Rate - - Oxygen Saturation - - Inhaled Oxygen Concentration - - Weight 78.5 kg (173 lb) 03/19/2023 8:57 AM EDT Height 170.2 cm (5' 7 ) 03/19/2023 8:57 AM EDT Body Mass Index 27.1 03/19/2023 8:57 AM EDT Plan of Treatment Health Maintenance Due Date Last Done Comments Hepatitis B Vaccines (1 of 3 - 19+ 3-dose series) 2006 Pneumococcal Vaccine: Pediatrics (0 to 5 Years) and At-Risk Patients (6 to 64 Years) (2 of 2 - PCV) 10/27/2015 10/27/2014 Depression Screening 09/10/2022 Social Influencers of Health Screening 09/10/2022 COVID-19 Vaccine (3 - 2023- season) 2024 04/29/2021, 03/25/2021 Influenza Vaccine (#1) 2024 , 06/18/2020, 10/27/2019, Additional history exists DTaP,Tdap,and Td Vaccines (2 - Td or Tdap) 06/17/2024 06/17/2014 Cholesterol Screening (Lipid Panel) 10/28/2024 10/28/2019 HIV Screening Completed 06/29/2014 Hepatitis C Screening Completed 12/01/2019 HIB Vaccines Aged Out No longer eligi ble based on patient's age to complete this topic HPV Vaccines Aged Out No longer eligi ble based on patient's age to complete this topic Hepatitis A Vaccines Aged Out No long er eligible based on patient's age to complete this topic IPV Vaccines Aged Out No longer eligi ble based on patient's age to complete this topic MMR Vaccines Aged Out No longer eligi ble based on patient's age to complete this topic Meningococcal ACWY Vaccine Aged Out N o longer eligible based on patient's age to complete this topic RSV Immunization Patients Under 20 months Aged Out No longer eligible based on patient's age to complete this topic Varicella Vaccines Aged Out No longer eligible based on patient's age to complete this topic Procedures Procedure Name Priority Date/Time Associated Diagnosis Comments HEPATITIS C SCREENING Routine 12/01/2019 LIPID PANEL Routine 10/28/2019 HIV SCREENING Routine 06/29/2014 from Last 3 Months or Most Recently Relevant to Health Maintenance Results * Hepatitis C Screening (12/01/2019) [facility] Hepatitis C Screening ABSTRACTED Historical Provider MD ABRIL Short * Lipid panel (10/28/2019) Pathologist [facility] LDL/HDL Ratio 4 0 - 4 Triglycerides 95 0 - 150 mg/dL Cholesterol 160 0 - 200 mg/dL HDL 43 40 mg/dL LDL Cholesterol 98 0 - 100 mg/dL Blood Venous blood specimen / Unknown Historical Provider LAB BLOOD ORDERAB LES * HIV Screening (06/29/2014) [facility] HIV Screening ABSTRACTED Historical Provider MD ABRIL Short from Last 3 Months or Most Recently Relevant to Health Maintenance Care Teams Belly Roller Relationship Specialty Start Date End Date Serafin Louis MD [address], [place] PCP - General Internal Medicine 03/17/22
--- OUTSIDE RECORDS SUMMARY | 2024-11-05 10:52 | XMS_ITS | Clinical Summary ---
Author Organization [facility] Address [address] [place] [address] Care Team Providers Care Tender Coordinator Name Role Phone Unavailable Primary Care Provider Unavailabl e Source Comments PLEASE NOTE, if this patient is a minor, it may be UNLAWFUL to discuss sensitive information that is contained in these records (such as FAMILY PLANNING, MENTAL HEALTH or SUBSTANCE ABUSE) with the minor patient's parent or other person without the patient's specific authorization.[facility] Social History Tobacco Use Types Packs/Day Years Used Date Smoking Tobacco: Never Assessed Sex and Gender Information Value Date Recorded Sex Assigned at Not on file Legal Sex Male 6:36 AM PDT Gender Identity Not on file Sexual Orientation Not on file Plan of Treatment Not on file Insurance [place] [employer] Member Subscriber Plan / Payer (Ef fective 2024-Present) Name:DebbieHasmukh Relation to Subscriber:Self Name:Hasmukh Lewis R Payer ID:[id number] Type:Indemnity Address: [address] [place] [address]
[2024-11-05 11:13] LABS: Alanine Aminotransferase 29 U/L (0-40); Albumin Level 4.5 g/dL (3.5-5.0); Alkaline Phosphatase 68 U/L (39-117); Anion Gap 11 (12-20); Aspartate Amino Transferase 27 U/L (5-37); Bilirubin Total 0.4 mg/dL (0.0-1.0); Blood Urea Nitrogen 13 mg/dL (9-16); C Reactive Protein < 0.10 mg/dL (< or = 0.50); Calcium 9.3 mg/dL (8.4-10.2); Carbon Dioxide 28 mmol/L (22-29); Chloride 104 mmol/L (96-108); Estimated Glomerular Filt Rate > 60; Glucose Random 125 mg/dL (60-115); Sodium 139 mmol/L (135-145); Total Protein 7.3 g/dL (6.5-8.0)
[2024-11-05 11:22] LABS: HBS Num1 133.28 mIU/mL (0-7.99); HBc Num1 0.14 S/CO (0.00-0.79); HBsAGNum1 0.34 S/CO (0.00-0.99); Hepatitis A Antibody IgM 0.15 Index (0-0.79); Hepatitis B Core Antibody Nonreactive (Nonreactive); Hepatitis B Surface Antigen Negative (Negative); ~HepC Num1 0.07 S/CO (0.00-0.79); ~Hepatitis A Antibody IgM Nonreactive (Nonreactive); ~Hepatitis B Surface Antibody REACTIVE (Nonreactive); ~Hepatitis C Antibody Nonreactive (Nonreactive)
[2024-11-05 11:23] LABS: Erythrocyte Sedimentation Rate 2 MM/HR (0-15)
[2024-11-08 15:44] LABS: TS Negative Control Passed; TS Panel A 0; TS Panel B 0; TS Positive Control Passed; TSpotTB Negative (Negative)
== END 2024-11-05 09:24 | disposition home or self-care (01) ==
LOC: HO.10HDL 09:23
PROVIDERS: Visit Provider Student in an Organized Health Care Education/Training Program
DX: M05.9 Rheumatoid arthritis with rheumatoid factor, unspecified (principal); Z79.899 Other long term (current) drug therapy
CPT/HCPCS: 36415; 80053; 85025; 85652; 86140; 86481; 86704; 86706; 86709; 86803; 87340

== ENCOUNTER 2024-12-11 07:35 | Outpatient (AMB) | payer MEDICAID, SELFPAY ==
--- NOTE | 2024-12-11 07:39 | MHC.OFFVIS ---
Vital Signs 12/11/24 07:46 Height 5 ft 7 in Weight 180 lb 15.992 oz BMI 28.3 BP 94/60 Blood Pressure Location Lt brachial Position Sitting Pulse 83 Pulse Source Pulse Oximeter Pulse Oximetry (%) 98 Oxygen Delivery Method Room Air Intake Visit Reasons: RA Intake Note: Patient presents for RA. 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 Mesa. At that time he was on sulfasalazine 1.5 g twice a day and Enbrel 50 mg sc weekly. He was doing well with no evidence of active synovitis. He did complain of minimal pain to his knees and wrists with no significant swelling which was attributed to his deforming degenerative arthritis. 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 He has not been able to see a yard person in almost 1 year. He ran out of his methotrexate many months ago. He got prescriptions of prednisone from his PCP which last him just a few weeks. He is currently having pain stiffness and swelling of his hands, morning stiffness lasts at least 1 hour and significant difficulty moving his wrist. He also has pain in his toes particularly the right 5th MTP. He takes ibuprofen which should provide some relief. He stated that when he was on the methotrexate he was feeling much better overall. He was recently evaluated by a surgeon for possible left axillary lymph adenopathy biopsy. He will have repeat imaging Current Rheumatology Medication(s): Sulfasalazine 1500 mg twice a day Enbrel 50 mg sc weekly [facility] Medical History Axillary lymphadenopathy Surgical History Hx of appendectomy Family History Paternal Grandmother Rheumatoid arthritis Father Myocardial infarction Mother No problems noted. 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 Review of Systems Const Details: Review of Systems Constitutional: Denies fever, chills, weight loss ENT: Denies vision changes, eye pain or eye redness, dental caries, dry mouth GI: Denies nausea, vomiting, diarrhea, abdominal pain, change in BM Pulm: Denies SOB, BRAN, hemoptysis, wheezing Cards: Denies chest pain, palpitations Skin: Denies Raynaud's, rash, nail changes, photosensitivity, TRAWL NET MAKER: Denies headaches, weakness, paresthesias, recurrent falls MSK: as per HPI All other systems reviewed and are unremarkable except noted above Physical Exam Vital Signs: Last Vital Signs BP 94/60 12/11/24 07:46 BMI result Body Mass Index 28.3 Vital signs reviewed Physical Examination CONSTITUITIONAL Patient alert and cooperative. Well appearing and in no apparent painful distress HEENT Conjunctiva and sclera clear. ?Pupils equal round and reactive to light. ?No lymphadenopathy. ? CHEST/RESPIRATORY SYSTEM Normal respiratory effort and able to speak in complete sentences. ?Clear to auscultation bilaterally. ?No crackles, rales, rhonchi, wheezes heard. CARDIAC SYSTEM Regular rate and rhythm. ?S1 and S2 heard no murmurs. ?Radial pulses intact bilaterally MSK Hands: ?Good email marketing specialist strength bilaterally.?No synovitis noted to the MCPs, PIPs or DIPs. ?No tenderness to palpation of these joints. reducible swan neck deformity of the right 2nd digit Wrists: ?Retricted ROM bilaterally left worse than right with about 5-10 degrees of flexion and extension on the left, 15-20 degrees of flexion and extension on the right. ?No tenderness to palpation or synovitis noted to the wrists. Elbows: Full range of motion without pain. No tenderness, weakness, swelling, increased warmth or erythema. Shoulders: Full range of motion without pain. No tenderness, weakness, swelling, increased warmth or erythema. Hips: Full range of motion without pain. Hip bursa: No tenderness to palpation Knees: ?Full range of motion. ?No tenderness, swelling, increased warmth or erythema.?No effusion or crepitations Ankles: Full range of motion. ?No tenderness, swelling, increased warmth or erythema.? Feet: ?Negative squeeze test. ?No tenderness to palpation or swelling of the MTPs. Tender points:?No tenderness to palpation of the bilateral trapezius, supraspinatus, greater trochanters, anterior costochondral junctions, bilateral gluteal areas, bilateral suboccipital muscle insertions SKIN Skin intact without rashes. Results Reviewed Results Reviewed: Laboratory Tests 11/05/24 09:30 WBC 4.7 L RBC 4.60 Hgb 14.1 Hct 42.6 Plt Count 263 ESR 2 Sodium 139 Potassium 4.0 Chloride 104 Carbon Dioxide 28 BUN 13 Creatinine 1.05 AST 27 ALT 29 Alkaline Phosphatase 68 C-Reactive Protein < 0.10 Immunology labs 07/21/22 12:06 Rheumatoid Factor 228.0 H Cycl Citrul Peptide IgG 62 H ISAURA Screen NEGATIVE Infectious serologies 11/05/24 09:30 Hepatitis A IgM Ab Nonreactive Hep Bs Antigen Negative Hep Bs Antibody REACTIVE Hep B Core Total Ab Nonreactive Hepatitis C Ab (EIA) Nonreactive TB Test (T-Spot) Com Negative Assessment & Plan Assessment & Plan (1) Seropositive rheumatoid arthritis: Comment: +++ RF+++ CCP deforming diagnosed in 2014 Started on methotrexate 6 tabs weekly Methotrexate discontinued 07/2022 due to transaminitis SSZ started 07/2022 partially effective Enbrel added 10/30 effective ran out due to change in insurance 05/30 Enbrel restarted 02/2024 effective Code(s): M05.9 - Rheumatoid arthritis with rheumatoid factor, unspecified Category: Medical Plan: #Seropositive erosive RA Patient is a 39 year male seropositive erosive rheumatoid arthritis here today for follow up. Patient is in remission with respect to his rheumatoid arthritis. The pains that he is complaining of are likely due to degenerative joint disease/osteoarthritis. Plan - Enbrel 50mg SC weekly - Sulfasalazine 1500mg bid - RTC 6 months - Labs before visit: CBC, CMP, ESR, CRP, hepatitis panel, T spot (2) Osteoarthritis of both hands: Code(s): M19.041 - Primary osteoarthritis, right hand; M19.042 - Primary osteoarthritis, left hand Qualifiers: Osteoarthritis type: primary Qualified Code(s): M19.041 - Primary osteoarthritis, right hand; M19.042 - Primary osteoarthritis, left hand Plan: #Bilateral OA of hands Patient complaining of pain intermittently to the base of the right thumbs. 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) drug therapy Category: Medical Plan: #Long-term Use of Sulphasalazine Discussed with patient the risks and benefits of sulfasalazine in the management of the rheumatic condition Benefits include: - Reduced pain, reduce mortality, maintenance of remission then reduction of flares Risks include: - GI upset, hemolysis (especially if G6PD deficiency), eosinophilia, headache, dizziness, rash, elevated LFTs (4) On etanercept therapy: Code(s): Z79.620 - alf (current) use of immunosuppressive biologic Category: Medical Plan: #Long-term Use of TNF Inhibitors: Etanercept Discussed with the patient the benefits and risks of TNF inhibitors for the management of the rheumatic condition Benefits include reduce pain, maintenance of remission and reduction of flares as well as ?progression of the disease Risks include injection sites/infusion reactions, serious infections (such as bacterial infections, opportunistic infections), malignancy, delaminating syndromes, autoimmune phenomena, CHF exacerbations, palmar plantar psoriasis and cytopenias Recommended rotating injection sites, and holding medication during and for up to 1 week after resolution of a febrile illness or open skin wound Plan I spent 30 minutes reviewing the record and labs, taking a history, examining the patient, discussing the treatment plan and documenting in the medical record Orders: Orders Comprehensive Met. Panel 6 Months M05.9 - Rheumatoid arthritis with rheumatoid factor, unspecified Hepatitis A,B,C Profile 6 Months M05.9 - Rheumatoid arthritis with rheumatoid factor, unspecified Complete Blood Count Auto Diff 6 Months M05.9 - Rheumatoid arthritis with rheumatoid factor, unspecified C Reactive Protein 6 Months M05.9 - Rheumatoid arthritis with rheumatoid factor, unspecified Erythrocyte Sedimentation Rate 6 Months M05.9 - Rheumatoid arthritis with rheumatoid factor, unspecified T Spot TB 6 Months M05.9 - Rheumatoid arthritis with rheumatoid factor, unspecified Medications: New diclofenac sodium 1% (Arthritis Pain (diclofenac)) apply to bilateral hands 4 times a day 4 grams topical QID 100 grams 5RF M19.041 - Primary osteoarthritis, right hand, M19.042 - Primary osteoarthritis, left hand Changed From ibuprofen 600 mg PO Q8H PRN 90 tabs 0RF for pain M05.9 - Rheumatoid arthritis with rheumatoid factor, unspecified To ibuprofen Do not take if using the gel 600 mg PO Q8H PRN 90 tabs 5RF for pain M05.9 - Rheumatoid arthritis with rheumatoid factor, unspecified Refilled Enbrel SureClick (etanercept) 50 mg subcut QWEEK 4 mL 5RF NS M05.9 - Rheumatoid arthritis with rheumatoid factor, unspecified sulfasalazine Take with meal/snack 1.5 grams (3 x 500 mg) PO BID 180 tabs 5RF M05.9 - Rheumatoid arthritis with rheumatoid factor, unspecified ibuprofen 600 mg PO Q8H PRN 90 tabs 0RF for pain Coding Level of Care Code Est Pt Level 4 (08600) Complex EM visit Add On G2211 Diagnoses Seropositive rheumatoid arthritis M05.9 Primary osteoarthritis of both hands M19.041; M19.042 Osteoarthritis type: primary On sulfasalazine therapy Z79.899 On etanercept therapy Z79.620
--- OUTSIDE RECORDS SUMMARY | 2024-12-11 07:39 | XMS_ITS | Clinical Summary ---
Author Organization [facility] Address [address] [place] [address] Care Team Providers Care Farmworker Rice Name Role Phone Serafin Louis MD Primary Care Provider Allergies No known active allergies Medications predniSONE (DELTASONE) 20 mg tablet Take 3 [...] hernia 02/15/2024 Overview (2024): [facility] at [facility] on 01/23/2024 Rheumatoid arthritis 07/22/2014 Immunizations Name Administration Dates Next Due Influenza Quadravalent, MDCK , 0.5ml, preservative free (Flucelvax) 6mo and older 08/08/2021,06/18/2020,10/27/2019 Influenza trivalent, 0.5mL, preservative free (Fluarix; FluLaval; Fluzone) ages 6mo and older (Afluria) 3 years and older 09/01/2015 [place] SARS-CoV-2 COVID-19, mRNA, LNP-S, preservative free 04/29/2021,03/25/2021 [...] at Not on file Legal Sex Male 6:34 AM EST Gender Identity Not on file Sexual Orientation [...] patient's age to complete this topic Meningococcal B Vacine Aged Out No lo nger eligible based on patient's age to complete [...] Maintenance Results * Hepatitis C Screening (12/01/2019) [facility] Hepatitis C Screening ABSTRACTED Historical Provider HEALTH MAINTENANCE Final Result * Lipid panel (10/28/2019) [facility] LDL/HDL Ratio 4 0 - 4 Triglycerides 95 0 - 150 mg/dL Cholesterol 160 0 - 200 mg/dL HDL 43 >=40 mg/dL LDL Cholesterol 98 0 - 100 mg/dL Blood Venous blood specimen / Unknown Historical Provider LAB BLOOD ORDERABLES Deonna l Result * HIV Screening (06/29/2014) [facility] HIV Screening ABSTRACTED Historical Provider HEALTH MAINTENANCE Final Result from Last 3 Months or Most Recently Relevant to Health Maintenance Care Teams Farmworker Rice Relationship Specialty Start Date End Date Serafin Louis MD [address] [place] [address] ID PCP - General Internal Medicine 03/17/22
--- OUTSIDE RECORDS SUMMARY | 2024-12-11 07:39 | XMS_ITS | Clinical Summary ---
Author Organization [facility] Address [address] [place] [address] Care Team Providers Care Flight Operations Manager Name Role Phone Unavailable Primary Care Provider [...] Plan of Treatment Not on file Insurance [place] [employer] Member Subscriber Plan / Payer (Ef fective 2024-Present) Name:DebbieHasmukh castillo Relation to Subscriber:Self Name:Debbie Terry Payer ID:[id number] Type:Indemnity Address: [address] [place] [address]
[2024-12-11 07:46] VITALS: BP 94/60; PULSE 83; O2SAT 98; BMI 28.3
== END 2024-12-11 08:06 | disposition home or self-care (01) ==
PROVIDERS: PCP Internal Medicine; Visit Provider Student in an Organized Health Care Education/Training Program
DX: M05.79 Rheumatoid arthritis with rheumatoid factor of multiple sites without organ or systems involvement (principal); M19.041 Primary osteoarthritis, right hand; M19.042 Primary osteoarthritis, left hand; Z79.899 Other long term (current) drug therapy; Z79.620 Long term (current) use of immunosuppressive biologic
CPT/HCPCS: 99214

== ENCOUNTER → 2024-12-11 07:35 | Outpatient (BNVA) | payer MEDICAID, SELFPAY | PROVIDERS: PCP Internal Medicine; Visit Provider Student in an Organized Health Care Education/Training Program | DX: M05.9 Rheumatoid arthritis with rheumatoid factor, unspecified (principal); M19.041 Primary osteoarthritis, right hand; M19.042 Primary osteoarthritis, left hand; Z79.620 Long term (current) use of immunosuppressive biologic; Z79.899 Other long term (current) drug therapy | CPT/HCPCS: 99212 ==

== ENCOUNTER 2025-08-11 13:06 | Outpatient (REF) | payer MEDICAID, SELFPAY ==
--- OUTSIDE RECORDS SUMMARY | 2025-08-11 16:05 | XMS_ITS | Clinical Summary ---
Author Organization [facility] Address [address] [place] [address] Care Team Providers Care Lap Machine Operator Name Role Phone Unavailable Primary Care Provider [...] Plan of Treatment Not on file Insurance [facility]
--- OUTSIDE RECORDS SUMMARY | 2025-08-11 16:05 | XMS_ITS | Clinical Summary ---
Author Organization [facility] Address [address] [place] [address] Care Team Providers Care Analysis Engineer Name Role Phone Serafin Louis MD Primary [...] hernia 02/15/2024 Overview (2024): CT scan at [facility] on 01/23/2024 Rheumatoid arthritis ([facility]/HCC V24, [facility]/HCC V28) 07/22/2014 Immunizations Immunization Administration Dates Next Due Influenza Quadravalent, MDCK , 0.5ml, preservative free (Flucelvax) 6mo and older 08/08/2021,06/18/2020,10/27/2019 Influenza trivalent, 0.5mL, preservative free (Fluarix; FluLaval; Fluzone) ages 6mo and older (Afluria) 3 years and older 09/01/2015 Siemens SARS-CoV-2 COVID-19, mRNA, LNP-S, preservative free 04/29/2021,03/25/2021 Pneumococcal polysaccharide 23 valent (Pneumovax 23) 2yo and older 10/27/2014 Tdap Tetanus diptheria acell ular pertussis (Boostrix; Adacel) 7yo and older 06/17/2014 Surgical History Surgery Date Site/Laterality Comments APPENDECTOMY 2014 PROCEDURE: HISTORICAL APPENDECTOMY Medical History Medical History Date Comments Rheumatoid arthritis ([facility] V24, [facility] V28) DX:Rheumatoid arthritis ([facility]) Family History Medical History Relation Name Comments [...] of 3 - 19+ 3-dose series) 2006 HPV Vaccines (1 - 3-dose SCDM series) 2014 Pneumococcal Vaccine: Pediatrics (0 to 5 Years) and At-Risk Patients (6 to 49 Years) (2 of 2 - PCV) 10/27/2015 10/27/2014 Social Influencers of Health Screening 09/10/2022 DTaP,Tdap,and Td Vaccines (2 - Td or Tdap) 06/17/2024 06/17/2014 Depression Screening 10/08/2024 Cholesterol Screening (Lipid Panel) 10/28/2024 10/28/2019 COVID-19 Vaccine ( season) 2025 04/29/2021, 03/25/2021 Influenza Vaccine (#1) 2025 , 06/18/2020, 10/27/2019, Additional history exists RSV Immunization Adult Patients (1 - 1-dose 75+ series) 2062 HIV Screening Completed 06/29/2014 Hepatitis C Screening [...] age to complete this topic Meningococcal B Vaccine Aged Out No l onger eligible based on patient's age to complete [...] Maintenance Results * Hepatitis C Screening (12/01/2019) [facility]ologist [facility] Hepatitis C Screening ABSTRACTED Historical Provider HEALTH MAINTENANCE Final Result * Lipid panel (10/28/2019) Pathologist [facility] LDL/HDL Ratio 4 0 - 4 Triglycerides 95 0 - 150 mg/dL Cholesterol 160 0 - 200 mg/dL HDL 43 >=40 mg/dL LDL Cholesterol 98 0 - 100 mg/dL Blood Venous blood specimen / Unknown Historical Provider LAB BLOOD ORDERABLES Deonna l Result * HIV Screening (06/29/2014) Pathologist [facility] HIV Screening ABSTRACTED Historical Provider HEALTH MAINTENANCE Final Result from Last 3 Months or Most Recently Relevant to Health Maintenance Care Teams Analysis Engineer Relationship Specialty Start Date End Date Serafin Louis MD [address] [place] [address] PCP - General Internal Medicine 03/17/22
[2025-08-11 17:54] LABS: MANUAL DIFF FLAG NO
[2025-08-11 18:11] LABS: Hematocrit 44.5 % (42.0-52.0); Hemoglobin 14.5 g/dl (14.0-18.0); Imm Gran Abs Auto 0.01 X10*3/uL (0.00-0.03); Imm Gran Pct Auto 0.2 % (0.0-0.4); Lymphocytes Absolute Auto 1.4 X10*3/uL (1.2-4.9); Mean Corpuscular HGB Conc 32.6 g/dl (31.0-36.0); Mean Corpuscular Hemoglobin 29.8 pg (27.0-33.0); Mean Corpuscular Volume 91.4 fL (80.0-98.0); NRBC Abs Auto 0.000 X10*3/uL (0.0-0.012); NRBC Pct Auto 0.0 /100WBC (0.0-0.2); Platelet Count 297 X10*3/uL (160-400); Red Blood Count 4.87 X10*6/uL (4.60-5.80); White Blood Count 4.5 X10*3/uL (4.8-10.8)
[2025-08-11 18:23] LABS: Alanine Aminotransferase 23 U/L (0-40); Albumin Level 4.8 g/dL (3.5-5.0); Alkaline Phosphatase 89 U/L (39-117); Anion Gap 11 (12-20); Aspartate Amino Transferase 27 U/L (5-37); Blood Urea Nitrogen 17 mg/dL (9-16); Calcium 9.0 mg/dL (8.4-10.2); Carbon Dioxide 28 mmol/L (22-29); Chloride 107 mmol/L (96-108); Estimated Glomerular Filt Rate > 60; Potassium 4.6 mmol/L (3.3-5.1); Sodium 141 mmol/L (135-145); Total Protein 7.1 g/dL (6.5-8.0)
[2025-08-12 10:42] LABS: HBS Num1 118.72 mIU/mL (0-7.99); HBc Num1 0.13 S/CO (0.00-0.79); HBsAGNum1 0.36 S/CO (0.00-0.99); Hepatitis A Antibody IgM 0.14 Index (0-0.79); Hepatitis B Surface Antigen Negative (Negative); ~HepC Num1 0.05 S/CO (0.00-0.79); ~Hepatitis A Antibody IgM Nonreactive (Nonreactive); ~Hepatitis B Surface Antibody REACTIVE (Nonreactive); ~Hepatitis C Antibody Nonreactive (Nonreactive)
[2025-08-13 20:08] LABS: TS Negative Control Passed; TS Panel A 0; TS Panel B 0; TS Positive Control Passed; TSpotTB Negative (Negative)
== END 2025-08-11 13:07 | disposition home or self-care (01) ==
LOC: HO.HKASLDS 13:06
PROVIDERS: PCP Internal Medicine; Visit Provider Student in an Organized Health Care Education/Training Program
DX: Z11.59 Encounter for screening for other viral diseases (principal); Z11.1 Encounter for screening for respiratory tuberculosis; M05.9 Rheumatoid arthritis with rheumatoid factor, unspecified
CPT/HCPCS: 36415; 80053; 85025; 85652; 86140; 86481; 86704; 86706; 86709; 86803; 87340